=== PATIENT | female | born 1990 | race Caucasian/White ===

== ENCOUNTER 2018-05-14 21:35 | Inpatient (IN) | payer OTHER ==
[2018-05-14] MEDS ORDERED: Butorphanol 1 MG/ML SDV IVPUSH PRN (22:09)
[2018-05-14] MEDS ORDERED: Carboprost Tromethamine 250 MCG/1 ML Amp IM PRN (22:09)
[2018-05-14] MEDS ORDERED: Nalbuphine 10 MG/1 ML Vial IVPUSH PRN (22:09)
[2018-05-14] MEDS ORDERED: Methylergonovine 0.2 MG/1 ML Amp IM PRN (22:09)
[2018-05-14] MEDS ORDERED: Sodium Chloride 0.9% 10 ML Syringe FLUSH PRN (22:09)
[2018-05-14] MEDS ORDERED: Misoprostol 200 MCG Tab PO PRN (22:09)
[2018-05-14] MEDS ORDERED: Sodium Chloride 0.9% 2.5 ML Syringe FLUSH PRN (22:09)
[2018-05-14] MEDS ORDERED: Lidocaine 1% 50 ML MDV INJECT PRN (22:09)
[2018-05-14] MEDS ORDERED: Tranexamic Acid 1,000 MG in Sodium Chloride 0.9% 100 ML IV PRN (22:09)
[2018-05-14] MEDS ORDERED: Water For Irrigation,Sterile 1,000 ML Container IRR PRN (22:09)
[2018-05-14] MEDS ORDERED: Oxytocin/0.9 % Sodium Chloride 30 UNIT/500 ML BAG IV SCH (22:15)
[2018-05-14] MEDS: Lactated Ringers 1,000 ML IV SCH (22:39)
[2018-05-15] MEDS: Lactated Ringers 1,000 ML IV SCH ×3 (01:05→04:33)
[2018-05-15] MEDS ORDERED: Terbutaline 1 MG/ML SDV SUBCUT PRN (02:37)
[2018-05-15] MEDS ORDERED: Oxytocin/0.9 % Sodium Chloride 30 UNIT/500 ML BAG IV SCH (02:45)
[2018-05-15] MEDS ORDERED: ePHEDrine 50 MG/ML SDV ONE (03:06)
--- NOTE | 2018-05-15 04:10 | PCM.PREANE ---
Preanesthetic Assessment - Procedure Proposed Procedure: epidural - Anesthesia/Transfusion/Family Hx Anesthesia History: No Prior Anesthesia Family History of Anesthesia Reaction: No Transfusion History: No Prior Transfusion(s) - Review of Systems General: No Symptoms Pulmonary: No Symptoms Gastrointestinal: No Symptoms Neurological: No Symptoms - Physical Assessment NPO Status Date: 05/14/18 Height: 1.6 m Weight: 83.007 kg - Lab Values: Laboratory Last Values WBC 8.66 K/uL (4.0-11.0) 05/14/18 22:32 RBC 4.23 M/uL (4.30-5.90) L 05/14/18 22:32 Hgb 13.1 g/dL (12.0-16.0) 05/14/18 22:32 Hct 37.3 % (36.0-46.0) 05/14/18 22:32 MCV 88.2 fL (80.0-98.0) 05/14/18 22:32 MCH 31.0 pg (27.0-32.0) 05/14/18 22:32 MCHC 35.1 g/dL (31.0-37.0) 05/14/18 22:32 RDW Std Deviation 42.3 fl (28.0-62.0) 05/14/18 22:32 RDW Coeff of Sukumar 13 % (11.0-15.0) 05/14/18 22:32 Plt Count 247 K/uL (150-400) 05/14/18 22:32 MPV 10.60 fL (7.40-12.00) 05/14/18 22:32 Nucleated RBC % 0.0 /100WBC 05/14/18 22:32 Nucleated RBCs # 0 K/uL 05/14/18 22:32 Blood Type O POSITIVE 05/14/18 22:32 Antibody Screen NEGATIVE 05/14/18 22:32 - Allergies Allergies/Adverse Reactions: Allergies Allergy/AdvReac Type Severity Reaction Status Date / Time No Known Allergies Allergy Verified 03/27/15 13:59 PreAnesthesia Questionnaire - Past Health History Medical/Surgical History: Denies Medical/Surgical History HEENT History: Reports: None Cardiovascular History: Reports: None Respiratory History: Reports: None Gastrointestinal History: Reports: None Genitourinary History: Reports: None 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 Endocrine/Metabolic History: Reports: None Hematologic History: Reports: None Oncologic (Cancer) History: Reports: None Dermatologic History: Reports: None - Past Surgical History Other HEENT Surgeries/Procedures: wisdom teeth removal - SUBSTANCE USE Smoking Status *Q: Never Smoker Tobacco Use Within Last Twelve Months: No Second Hand Smoke Exposure: No Recreational Drug Use History: No - HOME MEDS Home Medications: Home Meds Acetaminophen [Tylenol Extra Strength] 1,000 mg PO Q4H PRN #30 tablet 11/15/15 [ Rx] Benzocaine/Menthol [Dermoplast Pain Relief 20%-0.5% [place]] 78 gm TOP ASDIRECTED PRN #1 canister 11/15/15 [Rx] Ibuprofen [IJD: Ibuprofen] 800 mg PO Q6H PRN #30 tablet 11/15/15 [Rx] Sertraline [Zoloft] 50 mg PO DAILY #30 11/15/15 [Rx] - CURRENT (IN HOUSE) MEDS Current Meds: Current Medications Butorphanol Tartrate (Stadol) 1 mg IVPUSH ASDIRECTED PRN PRN Reason: Pain Last Admin: 05/15/18 02:17 Dose: 1 mg Carboprost Tromethamine (Hemabate Ds) 250 mcg IM ASDIRECTED PRN PRN Reason: Post Hemorrhage Lactated Ringer's (Ringers, Lactated) 1,000 mls @ 150 mls/hr IV ASDIRECTED RITU Last Admin: 05/15/18 03:12 Dose: 150 mls/hr Oxytocin/Sodium Chloride (Oxytocin 30 Unit/500 Ml-Ns) 30 unit in 500 mls @ 999 mls/hr IV TITRATE RITU Tranexamic Acid 1,000 mg/ (Sodium Chloride) 110 mls @ 660 mls/hr IV ONETIME PRN PRN Reason: Bleeding Oxytocin/Sodium Chloride (Oxytocin 30 Unit/500 Ml-Ns) 30 unit in 500 mls @ 2 mls/hr IV TITRATE RITU; Protocol Lidocaine HCl (Xylocaine 1%) 50 ml INJECT ONETIME PRN PRN Reason: Laceration repair Methylergonovine Maleate (Methergine) 0.2 mg IM ASDIRECTED PRN PRN Reason: Post Hemorrhage Misoprostol (Cytotec) 200 mcg PO ONETIME PRN PRN Reason: Post Hemorrhage Nalbuphine HCl (Nubain) 10 mg IVPUSH ASDIRECTED PRN PRN Reason: Pain (severe 7-10) Sodium Chloride (Saline Flush) 10 ml FLUSH ASDIRECTED PRN PRN Reason: Keep Vein Open Last Admin: 05/14/18 22:32 Dose: 10 ml Sodium Chloride (Saline Flush) 2.5 ml FLUSH ASDIRECTED PRN PRN Reason: Keep Vein Open Sterile Water (Sterile Water For Irrigation) 1,000 ml IRR ASDIRECTED PRN PRN Reason: delivery Terbutaline Sulfate (Brethine) 0.25 mg SUBCUT ASDIRECTED PRN PRN Reason: Tacysystole Discontinued Medications Ephedrine Sulfate (Ephedrine Sulfate) Confirm Administered Dose 50 mg .ROUTE .[facility]-MED ONE Stop: 05/15/18 03:07 Fentanyl/Bupivacaine HCl (Exvcqgvj-Lliku-Hg 2 Mcg/Ml-0.125%) Confirm Administered Dose 100 mls @ as directed .ROUTE .[facility]-MED ONE Stop: 05/15/18 03:07
[2018-05-15] MEDS ORDERED: fentaNYL 100 MCG/2 ML SDV ONE (04:17)
[2018-05-15] MEDS ORDERED: Lanolin 100% Cream 7 GM Tube TOP PRN (07:16)
[2018-05-15] MEDS ORDERED: Witch Hazel Medicated Pads 40/Jar TOP PRN (07:16)
[2018-05-15] MEDS ORDERED: Ibuprofen 400 MG Tab PO PRN (07:16)
[2018-05-15] MEDS ORDERED: Docusate Sodium 100 MG Cap PO PRN (07:16)
[2018-05-15] MEDS ORDERED: Ibuprofen 800 MG Tab PO PRN (07:16)
[2018-05-15] MEDS ORDERED: Acetaminophen 500 MG Tab PO PRN (07:16)
[2018-05-15] MEDS ORDERED: Benzocaine/Menthol 20%-0.5% Spray 78 GM Cannister TOP PRN (07:16)
[2018-05-15] MEDS ORDERED: Bisacodyl 10 MG Supp RECTAL PRN (07:16)
[2018-05-15] MEDS ORDERED: oxyCODONE 5 MG Tab PO PRN (07:16)
--- NOTE | 2018-05-15 07:23 | PCM.DEL ---
L & D Note - General Info Date of Service: 05/15/18 - Delivery Note Labor: Spontaneous, Augmented by Oxytocin Delivery Outcome: Livebirth Infant Delivery Method: Spontaneous Vaginal Delivery-Single Infant Delivery Mode: Spontaneous Presentation: Right Occiput Posterior (ROP) Nuchal Cord: None Prep: Other Anesthesia Type: Epidural Episiotomy Type: None Laceration: 1st Degree, Perineal Suture type: Vicryl Suture size: 3-0 Placenta: Intact, Spontaneous Cord: 3 Vessels Estimated Blood Loss: 100 Resuscitation Needed: No Score 1 min: 9 Score 5 min: 10 Induction Criteria - Augmentation Estimated Pelvis: Reports: Adequate Weight Estimated:: Reports: AGA Reassuring Monitoring Strip: Yes Absence of Tachy Systole: Yes - General Info Date of Service: 05/15/18 - Patient Data Weight - Most Recent: 183 lb Lab Results Last 24 Hours: Laboratory Results - last 24 hr 05/14/18 05/14/18 Range/Units 22:32 22:32 WBC 8.66 (4.0-11.0) K/uL RBC 4.23 L (4.30-5.90) M/uL Hgb 13.1 (12.0-16.0) g/dL Hct 37.3 (36.0-46.0) % MCV 88.2 (80.0-98.0) fL MCH 31.0 (27.0-32.0) pg MCHC 35.1 (31.0-37.0) g/dL RDW Std Deviation 42.3 (28.0-62.0) fl RDW Coeff of Sukumar 13 (11.0-15.0) % Plt Count 247 (150-400) K/uL MPV 10.60 (7.40-12.00) fL Nucleated RBC % 0.0 /100WBC Nucleated RBCs # 0 K/uL Blood Type O POSITIVE Antibody Screen NEGATIVE Med Orders - Current: Current Medications Discontinued Medications Butorphanol Tartrate (Stadol) 1 mg IVPUSH ASDIRECTED PRN PRN Reason: Pain Last Admin: 05/15/18 02:17 Dose: 1 mg Carboprost Tromethamine (Hemabate Ds) 250 mcg IM ASDIRECTED PRN PRN Reason: Post Hemorrhage Ephedrine Sulfate (Ephedrine Sulfate) Confirm Administered Dose 50 mg .ROUTE .STK-MED ONE Stop: 05/15/18 03:07 Fentanyl (Sublimaze) Confirm Administered Dose 100 mcg .ROUTE .[facility] ONE Stop: 05/15/18 04:18 Lactated Ringer's (Ringers, Lactated) 1,000 mls @ 150 mls/hr IV ASDIRECTED RITU Last Admin: 05/15/18 04:33 Dose: 150 mls/hr Oxytocin/Sodium Chloride (Oxytocin 30 Unit/500 Ml-Ns) 30 unit in 500 mls @ 999 mls/hr IV TITRATE RITU Tranexamic Acid 1,000 mg/ (Sodium Chloride) 110 mls @ 660 mls/hr IV ONETIME PRN PRN Reason: Bleeding Oxytocin/Sodium Chloride (Oxytocin 30 Unit/500 Ml-Ns) 30 unit in 500 mls @ 2 mls/hr IV TITRATE RITU; Protocol Last Titration: 05/15/18 06:50 Dose: 999 munits/min, 999 mls/hr Fentanyl/Bupivacaine HCl (Kwzlktxl-Ubltb-Sr 2 Mcg/Ml-0.125%) Confirm Administered Dose 100 mls @ as directed .ROUTE .[facility] ONE Stop: 05/15/18 03:07 Lidocaine HCl (Xylocaine 1%) 50 ml INJECT ONETIME PRN PRN Reason: Laceration repair Methylergonovine Maleate (Methergine) 0.2 mg IM ASDIRECTED PRN PRN Reason: Post Hemorrhage Misoprostol (Cytotec) 200 mcg PO ONETIME PRN PRN Reason: Post Hemorrhage Nalbuphine HCl (Nubain) 10 mg IVPUSH ASDIRECTED PRN PRN Reason: Pain (severe 7-10) Sodium Chloride (Saline Flush) 10 ml FLUSH ASDIRECTED PRN PRN Reason: Keep Vein Open Last Admin: 05/14/18 22:32 Dose: 10 ml Sodium Chloride (Saline Flush) 2.5 ml FLUSH ASDIRECTED PRN PRN Reason: Keep Vein Open Sterile Water (Sterile Water For Irrigation) 1,000 ml IRR ASDIRECTED PRN PRN Reason: delivery Last Admin: 05/15/18 06:41 Dose: 1,000 ml Terbutaline Sulfate (Brethine) 0.25 mg SUBCUT ASDIRECTED PRN PRN Reason: Tacysystole - Problem List & Annotations (1) Vaginal delivery SNOMED Code(s): 079733170 Code(s): O80 - ENCOUNTER FOR FULL-TERM UNCOMPLICATED DELIVERY Status: Acute Current Visit: No - Problem List Review Problem List Initiated/Reviewed/Updated: Yes - My Orders Last 24 Hours: My Active Orders 05/14/18 22:09 Heart Tones [RC] CONTINUOUS Non Stress Test [RC] PER UNIT ROUTINE May Shower [RC] ASDIRECTED Notify Provider [RC] PRN Up ad Татьяна [RC] ASDIRECTED Vaginal Exam [RC] PRN Vital Signs [RC] PER UNIT ROUTINE 05/15/18 02:37 Bedrest Bathroom Privileges [RC] ASDIRECTED Communication Order [RC] ASDIRECTED Communication Order [RC] ASDIRECTED Notify Provider [RC] PRN Notify Provider [RC] STAT Oxygen Therapy [RC] ASDIRECTED Vaginal Exam [RC] PRN Vital Signs [RC] PER UNIT ROUTINE 05/15/18 07:16 Acetaminophen [Tylenol Extra Strength] 1,000 mg PO Q4H PRN Acetaminophen [Tylenol Extra Strength] 500 mg PO Q4H PRN Benzocaine/Menthol [Dermoplast Pain Relief 20%-0.5% [place]] 78 gm TOP ASDIRECTED PRN Bisacodyl [Dulcolax] 10 mg RECTAL ONETIME PRN Docusate Sodium [Colace] 100 mg PO BID PRN Ibuprofen [Motrin] 400 mg PO Q4H PRN Ibuprofen [Motrin] 800 mg PO Q6H PRN Lanolin [Lansinoh HPA] See Dose Instructions TOP ASDIRECTED PRN Witch Lexie [Tucks] 1 pad TOP ASDIRECTED PRN oxyCODONE 5 mg PO Q2H PRN Resuscitation Status Routine 05/15/18 07:17 Patient Status [ADT] Routine May Shower [RC] ASDIRECTED Up ad Татьяна [RC] ASDIRECTED Vital Signs [RC] PER UNIT ROUTINE Assess Lochia [WOMSER] Per Unit Routine Assess Uterine Involution [WOMSER] Per Unit Routine Peripheral IV Discontinue [OM.PC] Routine 05/15/18 07:19 BLOOD GAS ARTERIAL UMBILICAL [BG] Routine BLOOD GAS VENOUS UMBILICAL [BG] Routine Perineal Care [OM.PC] Per Unit Routine 05/15/18 Lunch Regular Diet [DIET] 05/16/18 05:11 HEMOGLOBIN/HEMATOCRIT,HH [HEME] Timed
--- NOTE | 2018-05-15 09:31 | OR ---
SURGEON: Geovanna Rios MD DATE OF PROCEDURE: 05/15/2018 PREOPERATIVE DIAGNOSES: 1. Term at 38 weeks and 1 day. 2. Spontaneous labor. POSTOPERATIVE DIAGNOSES: 1. Term at 38 weeks and 1 day. 2. Spontaneous labor. 3. Delivered. PROCEDURE: Spontaneous vaginal delivery with repair of perineal laceration. ANESTHESIA: Epidural. ESTIMATED BLOOD LOSS: 100 mL. COMPLICATIONS: None. DISPOSITION: Mother and baby stable in Labor and Delivery room, [facility]. FINDINGS: Male infant, weight 2930 g, scores 9 and 10 at 1 and 5 minutes respectively. Grossly normal placenta with 3-vessel cord. First degree perineal laceration. BRIEF HISTORY: Twyla is a 28-year-old, G2, P1-0-0-1, who was admitted overnight at 38 weeks' gestation weight with complaints of leakage of clear fluid since about 8:30 p.m. on the , followed closely with irregular contractions. Denied vaginal bleeding and reported movement. Her care was uncomplicated. GBS negative. On admission, she was confirmed to be grossly ruptured and was 3 to 4 cm dilated, 70% effaced, station -2. She was admitted with routine intrapartum orders. 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 She received amnioinfusion for recurrent variable decelerations. The decelerations resolved with the amnioinfusion and the the heart tracing reverted to a category 1. She progressed to full dilatation and commenced active pushing. She pushed well bringing the baby's head down to a +4 station and was set up for delivery in modified dorsal lithotomy position. DESCRIPTION OF PROCEDURE: She had a spontaneous vaginal delivery of a live male in right occipital posterior position. No nuchal cord with clear amniotic fluid at delivery. Anterior and posterior shoulders and the rest of the baby were delivered without difficulty, and the baby was vigorous and cried spontaneously at . The baby was delivered onto the maternal abdomen in the presence of the attending nursery nurse, who was stimulating and drying the baby. Delayed cord clamping was observed, and the cord was subsequently cut. With delivery of the , oxytocin was converted to titration for active management of third stage of labor. Cord blood and gas samples were obtained. Placenta was delivered by controlled cord traction spontaneously and appeared to be complete and intact. Uterine massage was performed. The uterus was found to be well contracted. Examination of the vaginal montes de oca and cervix and the perineum revealed the first-degree laceration, which was repaired with 3-0 Vicryl and was hemostatic post repair. The patient tolerated the procedure well. Sponge, instrument, and needle counts were correct at the end of the delivery. ADUMVIV / MODL /[id number] MTDD
--- NOTE | 2018-05-15 11:51 | PCM48HPAN ---
Post Anesthesia Note - EVALUATION WITHIN 48HRS OF ANESTHETIC Vital Signs in Normal Range: Yes Patient Participated in Evaluation: Yes Respiratory Function Stable: Yes Airway Patent: Yes Cardiovascular Function Stable: Yes Hydration Status Stable: Yes Nausea and Vomiting Control Satisfactory: Yes Mental Status Recovered: Yes Resp Rate: 18 - COMMENTS/OBSERVATIONS Free Text/Narrative:: Patients states is comfortable now and at delivery time. No nausea or paresthesias.
[2018-05-15] MEDS: Acetaminophen 500 MG Tab PO PRN (17:28)
[2018-05-16] MEDS: Acetaminophen 500 MG Tab PO PRN (07:40)
[2018-05-16 07:52] VITALS: BP 117/77
--- NOTE | 2018-05-16 08:14 | PCM.PNPP ---
<Soha Gonzalez - Last Filed: 05/16/18 08:10> - General Info Date of Service: 05/16/18 Functional Status: Reports: Pain Controlled, Tolerating Diet, Ambulating - Review of Systems General: Denies: Fever, Weakness, Fatigue Pulmonary: Denies: Shortness of Breath, Pleuritic Chest Pain, Cough Cardiovascular: Denies: Chest Pain, Palpitations, Dyspnea on Exertion Gastrointestinal: Denies: Abdominal Pain Genitourinary: Denies: Dysuria - General Info Date of Service: 05/16/18 - Patient Data Vital Signs - Most Recent: Last Vital Signs Temp 36.3 C 05/16/18 07:35 Pulse 83 05/16/18 07:35 Resp 17 05/16/18 07:35 BP 117/77 05/16/18 07:35 Pulse Ox 98 05/16/18 07:35 Weight - Most Recent: 83.007 kg Lab Results - Last 24 Hours: Laboratory Results - last 24 hr 05/16/18 Range/Units 04:35 Hgb 10.4 L (12.0-16.0) g/dL Hct 31.3 L (36.0-46.0) % Med Orders - Current: Current Medications Acetaminophen (Tylenol Extra Strength) 500 mg PO Q4H PRN PRN Reason: Pain Acetaminophen (Tylenol Extra Strength) 1,000 mg PO Q4H PRN PRN Reason: Pain Last Admin: 05/16/18 07:40 Dose: 1,000 mg Benzocaine/Menthol (Dermoplast Pain Relief 20%-0.5% [place]) 78 gm TOP ASDIRECTED PRN PRN Reason: Perineal Comfort Measure Last Admin: 05/15/18 07:51 Dose: 78 gm Bisacodyl (Dulcolax) 10 mg RECTAL ONETIME PRN PRN Reason: Constipation Docusate Sodium (Colace) 100 mg PO BID PRN PRN Reason: Constipation Emollient Ointment (Lansinoh Hpa) 0 gm TOP ASDIRECTED PRN PRN Reason: Sore Nipples Last Admin: 05/15/18 07:52 Dose: 7 gm Ibuprofen (Motrin) 400 mg PO Q4H PRN PRN Reason: Pain Ibuprofen (Motrin) 800 mg PO Q6H PRN PRN Reason: Pain Last Admin: 01/17/19 14:31 Dose: 800 mg Oxycodone HCl (Oxycodone) 5 mg PO Q2H PRN PRN Reason: Pain Witch Lexie (Tucks) 1 pad TOP ASDIRECTED PRN PRN Reason: comfort care Last Admin: 05/15/18 07:52 Dose: 1 pad Discontinued Medications Butorphanol Tartrate (Stadol) 1 mg IVPUSH ASDIRECTED PRN PRN Reason: Pain Last Admin: 05/15/18 02:17 Dose: 1 mg Carboprost Tromethamine (Hemabate Ds) 250 mcg IM ASDIRECTED PRN PRN Reason: Post Hemorrhage Ephedrine Sulfate (Ephedrine Sulfate) Confirm Administered Dose 50 mg .ROUTE .[facility] [employer] ONE Stop: 05/15/18 03:07 Fentanyl (Sublimaze) Confirm Administered Dose 100 mcg .ROUTE .[facility] ONE Stop: 05/15/18 04:18 Lactated Ringer's (Ringers, Lactated) 1,000 mls @ 150 mls/hr IV ASDIRECTED RITU Last Admin: 05/15/18 04:33 Dose: 150 mls/hr Oxytocin/Sodium Chloride (Oxytocin 30 Unit/500 Ml-Ns) 30 unit in 500 mls @ 999 mls/hr IV TITRATE RITU Tranexamic Acid 1,000 mg/ (Sodium Chloride) 110 mls @ 660 mls/hr IV ONETIME PRN PRN Reason: Bleeding Oxytocin/Sodium Chloride (Oxytocin 30 Unit/500 Ml-Ns) 30 unit in 500 mls @ 2 mls/hr IV TITRATE RITU; Protocol Last Titration: 05/15/18 06:50 Dose: 999 munits/min, 999 mls/hr Fentanyl/Bupivacaine HCl (Rdbtpmwz-Cqvrk-Va 2 Mcg/Ml-0.125%) Confirm Administered Dose 100 mls @ as directed .ROUTE .[facility] [employer] ONE Stop: 05/15/18 03:07 Lidocaine HCl (Xylocaine 1%) 50 ml INJECT ONETIME PRN PRN Reason: Laceration repair Methylergonovine Maleate (Methergine) 0.2 mg IM ASDIRECTED PRN PRN Reason: Post Hemorrhage Misoprostol (Cytotec) 200 mcg PO ONETIME PRN PRN Reason: Post Hemorrhage Nalbuphine HCl (Nubain) 10 mg IVPUSH ASDIRECTED PRN PRN Reason: Pain (severe 7-10) Sodium Chloride (Saline Flush) 10 ml FLUSH ASDIRECTED PRN PRN Reason: Keep Vein Open Last Admin: 05/14/18 22:32 Dose: 10 ml Sodium Chloride (Saline Flush) 2.5 ml FLUSH ASDIRECTED PRN PRN Reason: Keep Vein Open Sterile Water (Sterile Water For Irrigation) 1,000 ml IRR ASDIRECTED PRN PRN Reason: delivery Last Admin: 05/15/18 06:41 Dose: 1,000 ml Terbutaline Sulfate (Brethine) 0.25 mg SUBCUT ASDIRECTED PRN PRN Reason: Tacysystole - Interaction Infant Disposition, : in Room with Family Interaction: Holding Infant Infant Feeding: Breastfed Infant; Nursed Well Support Person: - Recovery Exam Fundal Tone: Firm Fundal Level: 1 Fingerbreadths Below Umbilicus Fundal Placement: Midline Lochia Amount: Scant Lochia Color: Rubra/Red Perineum Description: Intact, Minimal Bruising/Swelling Episiotomy/Laceration: Approximated Bladder Status: Voiding Urinary Elimination: Voided - Exam General: Alert, Oriented Neck: Supple Lungs: Clear to Auscultation, Normal Respiratory Effort Cardiovascular: Regular Rate, Regular Rhythm GI/Abdominal Exam: Normal Bowel Sounds, Soft, Non-Tender, No Distention, No Abnormal Bruit, No Mass Extremities: Normal Inspection, Non-Tender, Normal Capillary Refill, Pedal Edema (trace) Skin: Warm, Dry, Intact - Problem List Review Problem List Initiated/Reviewed/Updated: Yes - Assessment Assessment:: PPD #1 s/p . Minimal pain and lochia. Breast feeding well. Discharge home today. - Plan Plan:: Discharge instructions reviewed. Pelvic rest for 6 weeks. Continue PNV while breast feeding. Can use OTC ibuprofen/tylenol as needed for pain. Instructed patient to call if she develops fever greater than 101 or bleeding through a large pad an hour. F/U with [facility] in 6 weeks. <Leyla Dong R - Last Filed: 05/16/18 08:17> - Patient Data Vital Signs - Most Recent: Last Vital Signs Temp 36.3 C 05/16/18 07:35 Pulse 83 05/16/18 07:35 Resp 17 05/16/18 07:35 BP 117/77 05/16/18 07:35 Pulse Ox 98 05/16/18 07:35 Lab Results - Last 24 Hours: Laboratory Results - last 24 hr 05/16/18 Range/Units 04:35 Hgb 10.4 L (12.0-16.0) g/dL Hct 31.3 L (36.0-46.0) % Med Orders - Current: Current Medications Acetaminophen (Tylenol Extra Strength) 500 mg PO Q4H PRN PRN Reason: Pain Acetaminophen (Tylenol Extra Strength) 1,000 mg PO Q4H PRN PRN Reason: Pain Last Admin: 05/16/18 07:40 Dose: 1,000 mg Benzocaine/Menthol (Dermoplast Pain Relief 20%-0.5% [place]) 78 gm TOP ASDIRECTED PRN PRN Reason: Perineal Comfort Measure Last Admin: 05/15/18 07:51 Dose: 78 gm Bisacodyl (Dulcolax) 10 mg RECTAL ONETIME PRN PRN Reason: Constipation Docusate Sodium (Colace) 100 mg PO BID PRN PRN Reason: Constipation Emollient Ointment (Lansinoh Hpa) 0 gm TOP ASDIRECTED PRN PRN Reason: Sore Nipples Last Admin: 05/15/18 07:52 Dose: 7 gm Ibuprofen (Motrin) 400 mg PO Q4H PRN PRN Reason: Pain Ibuprofen (Motrin) 800 mg PO Q6H PRN PRN Reason: Pain Last Admin: 05/15/18 14:31 Dose: 800 mg Oxycodone HCl (Oxycodone) 5 mg PO Q2H PRN PRN Reason: Pain Witch Lexie (Tucks) 1 pad TOP ASDIRECTED PRN PRN Reason: comfort care Last Admin: 05/15/18 07:52 Dose: 1 pad Discontinued Medications Butorphanol Tartrate (Stadol) 1 mg IVPUSH ASDIRECTED PRN PRN Reason: Pain Last Admin: 05/15/18 02:17 Dose: 1 mg Carboprost Tromethamine (Hemabate Ds) 250 mcg IM ASDIRECTED PRN PRN Reason: Post Hemorrhage Ephedrine Sulfate (Ephedrine Sulfate) Confirm Administered Dose 50 mg .ROUTE .[facility] ONE Stop: 05/15/18 03:07 Fentanyl (Sublimaze) Confirm Administered Dose 100 mcg .ROUTE .[facility] ONE Stop: 05/15/18 04:18 Lactated Ringer's (Ringers, Lactated) 1,000 mls @ 150 mls/hr IV ASDIRECTED RITU Last Admin: 05/15/18 04:33 Dose: 150 mls/hr Oxytocin/Sodium Chloride (Oxytocin 30 Unit/500 Ml-Ns) 30 unit in 500 mls @ 999 mls/hr IV TITRATE RITU Tranexamic Acid 1,000 mg/ (Sodium Chloride) 110 mls @ 660 mls/hr IV ONETIME PRN PRN Reason: Bleeding Oxytocin/Sodium Chloride (Oxytocin 30 Unit/500 Ml-Ns) 30 unit in 500 mls @ 2 mls/hr IV TITRATE RITU; Protocol Last Titration: 05/15/18 06:50 Dose: 999 munits/min, 999 mls/hr Fentanyl/Bupivacaine HCl (Ilbepbqt-Zjxap-Og 2 Mcg/Ml-0.125%) Confirm Administered Dose 100 mls @ as directed .ROUTE .[employer] ONE Stop: 05/15/18 03:07 Lidocaine HCl (Xylocaine 1%) 50 ml INJECT ONETIME PRN PRN Reason: Laceration repair Methylergonovine Maleate (Methergine) 0.2 mg IM ASDIRECTED PRN PRN Reason: Post Hemorrhage Misoprostol (Cytotec) 200 mcg PO ONETIME PRN PRN Reason: Post Hemorrhage Nalbuphine HCl (Nubain) 10 mg IVPUSH ASDIRECTED PRN PRN Reason: Pain (severe 7-10) Sodium Chloride (Saline Flush) 10 ml FLUSH ASDIRECTED PRN PRN Reason: Keep Vein Open Last Admin: 05/14/18 22:32 Dose: 10 ml Sodium Chloride (Saline Flush) 2.5 ml FLUSH ASDIRECTED PRN PRN Reason: Keep Vein Open Sterile Water (Sterile Water For Irrigation) 1,000 ml IRR ASDIRECTED PRN PRN Reason: delivery Last Admin: 05/15/18 06:41 Dose: 1,000 ml Terbutaline Sulfate (Brethine) 0.25 mg SUBCUT ASDIRECTED PRN PRN Reason: Tacysystole - Plan Plan:: Patient seen and examined--agree with plan of care
== END 2018-05-16 10:35 | disposition home or self-care (01) | DRG 807 ==
LOC: MW.OBCHECK 21:35 → MW.OB 21:42 → MW.OBCHECK 22:09 → OBSVTOIN 05-15 06:50
PROVIDERS: ADMIT Obstetrics & Gynecology; ATTEND Obstetrics & Gynecology
PROC: 10E0XZZ Delivery of Products of Conception, External Approach (ICD-10-PCS; principal; 2018-05-15)
PROC: 0HQ9XZZ Repair Perineum Skin, External Approach (ICD-10-PCS; 2018-05-15)
PROC: 00HU33Z Insertion of Infusion Device into Spinal Canal, Percutaneous Approach (ICD-10-PCS; 2018-05-15)
DX: O70.0 First degree perineal laceration during delivery (principal); Z37.0 Single live birth; Z3A.38 38 weeks gestation of pregnancy; O76 Abnormality in fetal heart rate and rhythm complicating labor and delivery
CPT/HCPCS: 36415; 51702; 59025; 59409; 82803; 85014; 85018; 85027; 86850; 86900; 86901; A9270-GY; J0595; J2590; J7120